=== PATIENT | female | born 1975 | race Caucasian/White ===

== ENCOUNTER → 2019-12-25 | Outpatient (CLI) | payer OTHER ==
--- NOTE | 2020-01-06 17:24 | REPMRS ---
Patient History The patient states she has not had a clinical breast exam in over a year. Patient had first child at age 39. Patient had tested negative for BRCA1 and negative for BRCA2. Family history of breast cancer at age 46 in mother, ovarian cancer at age 51 in paternal grandmother. No Hormone Replacement Therapy 3D TOMOSYNTHESIS WAS PERFORMED. VOLPETERA TITUS A. Digital Woman Screen Mammo: December 25, 2019 - Exam #: [id number] Bilateral CC and MLO view(s) were taken. Technologist: Yue Sung, Technologist Prior study comparison: November 2018, bilateral digital woman screen mammo, performed at [facility]. FINDINGS: There are scattered fibroglandular densities. There has been no change in the appearance of the mammogram from the prior studies. There is a mild amount of residual fibroglandular tissue which is fairly symmetric. There is no interval development of dominant mass, architectural distortion, or clustered microcalcification suggestive of malignancy. Assessment: BI-RADS/ACR category 1 mammogram. Negative Mammogram. Recommendation Breast MRI of both breasts in 6 months. Routine screening mammogram of both breasts in 1 year (for women over age 40). This patient's Lifetime Breast Cancer RIsk is estimated at 33.3 %. Annual screening Breast MRI scanniing is recommended for patient's whose lifetime risk assessment is over 20%. This mammogram was interpreted with the aid of an FDA-approved computer-aided dectection system. Electronically Signed By: Albert Lindsay MD 01/06/20 9812
== END ==
LOC: M WHC 14:09
PROVIDERS: ATTEND Physician Assistant
DX: Z12.31 Encounter for screening mammogram for malignant neoplasm of breast (principal)